=== PATIENT | female | born 1990 | race Caucasian/White ===

== ENCOUNTER 2021-02-09 11:09 | Emergency (ER) | payer SELFPAY ==
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
[2021-02-09 15:05] VITALS: BP 129/86; TEMP 97.9; O2SAT 99
== END 2021-02-09 15:00 | disposition left against medical advice (07) ==
LOC: ER 11:09
DX: Z53.21 Procedure and treatment not carried out due to patient leaving prior to being seen by health care provider (principal)
CPT/HCPCS: 99281